=== PATIENT | male | born 2000 | race Caucasian/White ===

== ENCOUNTER 2019-08-17 16:26 | Emergency (ER) | payer BC, SELFPAY ==
[2019-08-17 16:30] VITALS: BP 144/86; PULSE 90; RESP 18; TEMP 36.8; O2SAT 100; BMI 20.9
--- NOTE | 2019-08-17 16:33 | XR_ITS ---
PROCEDURE: XR CHEST PORTABLE CLINICAL HISTORY: cough/respiratory symptoms Chest pain COMPARISON: No exams were available for comparison FINDINGS: The cardiomediastinal silhouette and pulmonary vascularity are within normal limits. No lobar consolidation or collapse is evident. Overlying the left inferior hilar region/heart there is some irregular density noted possibly due to summation artifact from overlying vessels. The remaining lungs are clear. No acute bony abnormalities. IMPRESSION: Irregular density overlies the left hilum inferiorly and may be due to artifact from overlying vessels. Consider follow-up PA and lateral chest for confirmation otherwise negative Dictated by: Inocencio Sutherland MD 08/17/2019 16:53 Electronically signed by Inocencio Sutherland MD in [place] 08/17/2019 16:53
--- NOTE | 2019-08-17 16:33 | HMH.COUGH ---
Cough Clinic HPI - History of Present Illness HPI:: 18 year old male presents to cough clinic today complaining of a 1 day history of sore throat, chest heaviness and nausea. He states he was recently around someone with pneumonia. He denies fever and cough. He has not taken any medication for his symptoms and does not take any medications on a routine basis. Home Medications: Home Medications Medication Instructions Recorded Confirmed Type Amoxicillin [Amoxicillin 500mg 500 mg PO TID #21 cap 08/17/19 Rx Cap] Allergies/Adverse Reactions: Allergies Allergy/AdvReac Type Severity Reaction Status Date / Time No Known Allergies Allergy Verified 08/17/19 16:28 Cough Clinic Triage - Symptoms Fever History: No Chills: Yes Myalgia: No Nasal Drainage: No Sore Throat: Yes Productive Cough: No Non-productive Cough: No Ear or Sinus Pain: No Joint Pain: No Chest Pain: Yes Rash: No Shortness of Breath: Yes Nausea or Vomitting: Yes Headache: No Abdominal Pain: No Diarrhea: No - Exposure History Foreign Travel: No Direct Contact with COVID-19 Patient: No - Risk Factors Greater than 60 Years Old: No COPD: No Diabetes: No Heart Disease: No Home Oxygen Use: No Chronic Renal Disease: No Chronic Liver Disease: No Neurologic/Neurodevelopmental/intellectual disability: No Other Chronic Diseases: No Current Smoker: No Former Smoker: No - Eyes Eyes: Denies change in vision - Genitourinary Male Genitourinary: Denies difficulty urinating - Neurologic Neurologic: Denies dizziness Cough Clinic Exam - General General appearance: alert, in no apparent distress - Head Head exam: atraumatic, normocephalic, normal inspection - Eye Eye exam: Present: normal appearance, PERRL, EOMI - ENT ENT exam: Present: normal exam, mucous membranes moist, TM's normal bilaterally, normal external ear exam - Expanded ENT Exam Throat exam: Present: tonsillar erythema - Neck Neck exam: Present: normal inspection, full ROM, trachea midline. Absent: meningismus, lymphadenopathy - Respiratory Respiratory exam: Present: normal lung sounds bilaterally. Absent: respiratory distress - Cardiovascular Cardiovascular exam: Present: regular rate, normal rhythm. Absent: JVD - Abdominal Exam Abdominal exam: Present: soft, normal bowel sounds. Absent: tenderness - Extremities Exam Extremities exam: Present: normal inspection, full ROM, normal capillary refill. Absent: calf tenderness - Neurological Exam Neurological exam: Present: alert, oriented X3 - Skin Skin exam: Present: warm, dry, intact, normal color - Lymphatic Lymphatic Findings: no adenopathy Cough Clinic MDM Vital Signs: 08/17/19 16:30 Temperature 98.2 F Temperature Source Oral Pulse Rate [Brachial] 90 Respiratory Rate 18 Blood Pressure [Right Arm] 144/86 H Blood Pressure Mean [Right Arm] 105 Blood Pressure Source [Right Arm] Automatic Cuff Blood Pressure Position [Right Arm] Sitting 02 Sat by Pulse Oximetry 100 Oxygen Delivery Method Room Air - Lab Data Lab results reviewed: Yes: I reviewed the patient's lab results. Lab Results 08/17/19 16:40: WBC 7.4, RBC 5.01, Hgb 15.2, Hct 45.6, MCV 91.0, MCH 30.4, MCHC 33.4, RDW 13.7, Plt Count 278, MPV 7.1 L, Neut % (Auto) 60.1, Lymph % (Auto) 26.3, Mcnairy % (Auto) 8.9, Eos % (Auto) 4.1, Baso % (Auto) 0.6, Neut # (Auto) 4.4, Lymph # (Auto) 1.9, Mcnairy # (Auto) 0.7, Eos # (Auto) 0.3, Baso # (Auto) 0.1 08/17/19 16:40: Influenza Type A Ag Negative, Influenza Type B Ag Negative 08/17/19 16:40: Group A Strep Rapid Negative Orders (Tests/Meds): ORDERS Category Date Time Status Strep Screen Confirmation Stat Micro 08/17/19 16:40 Received Medical Decision Narrative: CXR with no consolidation, CBC consistent with a bacterial infection. Cough Clinic Disposition Clinical Impression: URI, acute Disposition: Home, Self-Care Instructions: Acute Bronchitis Prescriptions: A
[2019-08-17 16:47] LABS: Hematocrit 45.6 % (42.0-52.0); Hemoglobin 15.2 g/dL (14.1-18.0); Mean Corpuscular HGB Conc 33.4 g/dL (31.8-35.4); Mean Corpuscular Hemoglobin 30.4 pg (27.0-31.2); Mean Platelet Volume 7.1 fl (7.4-10.4); Platelet Count 278 K/mm3 (142-424); Red Blood Count 5.01 M/mm3 (4.60-6.20); Red Cell Distribution Width 13.7 % (11.5-17.5); White Blood Count 7.4 K/mm3 (4.5-13.0)
[2019-08-17 16:48] LABS: Basophils # 0.1 K/mm3 (0-0.2); Basophils % 0.6 % (0.1-2.0); Eosinophils # 0.3 K/mm3 (0.0-0.4); Eosinophils % 4.1 % (0.1-12.0); Lymphocytes # 1.9 K/mm3 (0.7-4.5); Lymphocytes % 26.3 % (10-50); Monocytes # 0.7 K/mm3 (0.1-1.0); Monocytes % 8.9 % (1.7-9.3); Neutrophils # 4.4 K/mm3 (1.8-7.8); Neutrophils % 60.1 % (37.0-80.0)
[2019-08-17 16:51] LABS: Strep Scrn Group A (Rapid) Negative (Negative)
[2019-08-17 17:07] VITALS: BP 144/86; PULSE 90; RESP 18; TEMP 36.8; O2SAT 100
== END 2019-08-17 17:08 | disposition home or self-care (01) ==
PROVIDERS: Emergency Provider Family Medicine
DX: J06.9 Acute upper respiratory infection, unspecified (principal)
CPT/HCPCS: 36415; 71045; 85025; 87275; 87276; 87430; 99201; 99213

== ENCOUNTER 2021-09-27 19:46 | Emergency (ER) | payer SELFPAY ==
[2021-09-27 19:53] VITALS: BP 143/95; PULSE 115; RESP 14; TEMP 36.6; O2SAT 99; BMI 20.9
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
[2021-09-27 21:00] VITALS: BP 134/91; PULSE 100; RESP 18; TEMP 37.5; O2SAT 100; BMI 20.9
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
[2021-09-27 22:00] VITALS: BP 134/91; PULSE 100; RESP 18; TEMP 37.5; O2SAT 100
== END 2021-09-27 22:08 | disposition home or self-care (01) ==
PROVIDERS: Emergency Provider Physician Assistant
DX: S52.125A Nondisplaced fracture of head of left radius, initial encounter for closed fracture (principal); W22.8XXA Striking against or struck by other objects, initial encounter; Y92.89 Other specified places as the place of occurrence of the external cause
CPT/HCPCS: 73090; 73100; 73120; 99213; G0463

== ENCOUNTER → 2021-10-28 10:28 | Outpatient (CLI) | payer SELFPAY ==
--- NOTE | 2021-10-28 10:32 | XR_ITS ---
FINAL REPORT CLINICAL HISTORY: elbow fracture follow-up COMPARISON: September 27, 2021 FINDINGS: LEFT ELBOW Three views of the left elbow were obtained. Again noted is a nondisplaced fracture of the radial neck. The bony alignment is stable. There is evidence of interval healing at the fracture site with increased sclerosis. The joint spaces are intact. There is no soft tissue abnormality. IMPRESSION: Nondisplaced fracture of the radial neck with interval healing at the fracture site with increased sclerosis. Reviewed, Interpreted and Dictated by Sanjay Lopez III, MD Transcribed by Catrachita Gutierrez Authenticated and [facility]
--- NOTE | 2021-10-28 11:59 | XR_ITS ---
FINAL REPORT CLINICAL HISTORY: wrist pain FINDINGS: 6 views including scaphoid views of the left wrist were obtained. There is no acute fracture or dislocation. The joint spaces are intact. There is no soft tissue abnormality. IMPRESSION: No acute abnormality. Reviewed, Interpreted and Dictated by Sanjay Lopez III, MD Transcribed by Raffi Ward Authenticated and [facility]
== END ==
PROVIDERS: Visit Provider Orthopaedic Surgery
DX: S52.122A Displaced fracture of head of left radius, initial encounter for closed fracture (principal); S63.502A Unspecified sprain of left wrist, initial encounter
CPT/HCPCS: 73080; 73110

== ENCOUNTER 2021-12-24 18:16 | Emergency (ER) | payer OTHER, SELFPAY ==
[2021-12-24 19:09] VITALS: BP 129/85; PULSE 102; RESP 19; TEMP 36.6; O2SAT 100; BMI 23.7
--- NOTE | 2021-12-24 19:23 | EXP.UTC ---
Discharge Plan Disposition Patient Disposition: Home, Self-Care Condition: Good Prescriptions Prescriptions: New amoxicillin-pot clavulanate 875-125 mg tablet 1 tab PO Q12H 7 Days Qty: 14 0RF No Action amoxicillin 500 MG capsule 500 mg PO TID Qty: 21 0RF Referrals Referrals: Provider,Referral, MD [Primary Care Provider] - Enter time for follow up Activity Restrictions/Add. Instructions Additional Instructions/Restrictions: Keep wound area clean and dry Watch for signs of infection including but not limited too swelling, redness, drainage and streaks if seen follow up immediately Take medication as prescribed Return if needed Straight to ER if any life threatening symptoms Clinical Impressions Clinical Impression: Cat bite Discharge ED Provider: Martina Cortez Abi [facility] HPI General Stated complaint: ao 12/24, right hand/finger pain Time Seen by Provider: 12/24/21 19:23 Source of Information: Patient Limitations: No Limitations Description of Symptoms (Recalled from Triage Doc. by RN): patient comes in with cat bite that happened early this am. on right ring finger. HEENT Symptoms (Recalled from RN notes): No Resp Symptoms (Recalled from RN notes): No Skin Symptoms (Recalled from RN notes): Yes MS Symptoms (Recalled from RN notes): No Functional Status (Recalled from RN notes): n/a History of Present Illness Provider Complaint: Patient states that around 4am this morning his cat bite him on his right ring finger States that he thought it would be ok but as the day went on it got more sore and he got worried about infection so he came in to get it checked and get a tetatnus shot Related Data Previous Rx's Medication Instructions Recorded amoxicillin 500 mg capsule 500 mg PO TID #21 caps 08/17/19 amoxicillin 875 mg-potassium 1 tab PO Q12H 7 days #14 tabs 12/24/21 clavulanate 125 mg tablet Allergies Allergy/AdvReac Type Severity Reaction Status Date / Time No Known Allergies Allergy Verified 10/28/21 11:24 Worker's Comp Is this a Worker's Comp case?: No PFSH PFSH Social History Smoking Status: Never smoker alcohol intake: never substance use type: denies use current occupational status: student household members: family housing: house ROS Obtained: Yes All systems reviewed & no additional complaints except as documented and Yes Systems reviewed as appropriate & no additional complaints except as documented Eyes Eyes: Reports system reviewed and no additional complaints, except as documented and Reports as per HPI ENT Ears, Nose, Mouth, and Throat: Reports system reviewed and no additional complaints, except as documented and Reports as per HPI Cardiovascular Cardiovascular: Reports system reviewed and no additional complaints, except as documented and Reports as per HPI Respiratory Respiratory: Reports system reviewed and no additional complaints, except as documented Integumentary/Breasts Skin/Breast: Reports system reviewed and no additional complaints, except as documented and Reports other Comments: multiple cat bites noted to right ring finger able to move and bend finger no redness noted mild swelling Physical Exam General General appearance: alert and in no apparent distress ENT ENT exam: Present normal exam Respiratory Respiratory exam: Present normal lung sounds bilaterally; Absent respiratory distress Cardiovascular Cardiovascular exam: Present regular rate and normal rhythm Expanded Upper Extremity Exam Right: Hand L/R front image: 1. other (small puncture wound noted patient reports was biten by cat earlier today) 2. other (multiple small abrasions noted from cat bite earlier this morning) Comment: able to move and bend finger without difficulty, no redness noted mild swelling noted Neurological Exam Neurological exam: Present alert and oriented X3 Medical Decision Making Anselmo
[2021-12-24 19:53] VITALS: BP 129/85; PULSE 102; RESP 19; TEMP 36.6
== END 2021-12-24 19:55 | disposition home or self-care (01) ==
PROVIDERS: Emergency Provider Nurse Practitioner
DX: S61.234A Puncture wound without foreign body of right ring finger without damage to nail, initial encounter (principal); W55.01XA Bitten by cat, initial encounter; Z23 Encounter for immunization
CPT/HCPCS: 90471; 90714; 99212; G0463

== ENCOUNTER 2021-12-25 22:28 | Emergency (ER) | payer OTHER, SELFPAY ==
[2021-12-25 22:30] VITALS: BP 141/98; PULSE 111; RESP 16; TEMP 38.3; O2SAT 98; BMI 23.7
[2021-12-25 23:18] VITALS: BMI 23.7
[2021-12-25 23:39] LABS: Basophils # 0.1 K/mm3 (0-0.2); Basophils % 0.7 % (0.1-2.0); Eosinophils # 0.1 K/mm3 (0.0-0.4); Hematocrit 43.4 % (42.0-52.0); Hemoglobin 13.9 g/dL (14.1-18.0); Lymphocytes # 1.1 K/mm3 (0.7-4.5); Lymphocytes % 7.9 % (10-50); Mean Corpuscular HGB Conc 32.1 g/dL (31.8-35.4); Mean Corpuscular Hemoglobin 30.6 pg (27.0-31.2); Mean Corpuscular Volume 95.3 fl (80-94); Mean Platelet Volume 7.4 fl (7.4-10.4); Monocytes # 0.7 K/mm3 (0.1-1.0); Monocytes % 5.1 % (1.7-9.3); Neutrophils # 11.7 K/mm3 (1.8-7.8); Neutrophils % 85.3 % (37.0-80.0); Platelet Count 333 K/mm3 (142-424); Red Blood Count 4.55 M/mm3 (4.60-6.20); Red Cell Distribution Width 13.7 % (11.5-17.5); White Blood Count 13.7 K/mm3 (4.8-10.8)
--- NOTE | 2021-12-25 23:48 | XR_ITS ---
PROCEDURE INFORMATION: Exam: XR Right Hand Exam date and time: 12/25/2021 11:42 PM Age: 21 years old Clinical indication: Swelling; Fingers; Right; Additional info: Cat bite, 4th digit TECHNIQUE: Imaging protocol: Radiologic exam of the Right hand. Views: 3 or more views. COMPARISON: CR HANDR3 HAND-RT 3 VIEWS 12/30/2015 4:42 PM FINDINGS: Bones/joints: No acute fracture or dislocation. Soft tissues: Normal. IMPRESSION: No acute fracture or dislocation.
[2021-12-25 23:50] LABS: Alanine Aminotransferase 58 U/L (12-78); Albumin Level 4.3 g/dl (3.5-5.0); Albumin/Globulin Ratio 1.3 (1.1-1.8); Alkaline Phosphatase 137 U/L (38-126); Aspartate Amino Transferase 39 U/L (17-59); Bilirubin,Total 1.5 mg/dl (0.2-1.3); Blood Urea Nitrogen 10 mg/dl (9-20); Calcium 9.1 mg/dl (8.4-10.2); Carbon Dioxide 29 mmol/L (22.0-30.0); Chloride 103 mmol/L (98-107); Creatinine Clearance Estimated 139 mL/min (50-200); Estimated Glomerular Filt Rate 105 ml/min (>60); GFR (African American) 127 ML/MIN (>60); Globulin 3.4 g/dL (1.3-3.2); Glucose 107 mg/dl (74-100); Sodium 139 mmol/L (136-145); Total Protein,Serum 7.7 g/dl (6.3-8.2)
[2021-12-25 23:51] LABS: Lactic Acid 0.9 mmol/L (0.7-2.1)
[2021-12-25 23:55] LABS: C-Reactive Protein 69.5 mg/L (0-4)
[2021-12-25 23:57] LABS: MANUAL DIFFERENTIAL MANUAL DIFFERENTIAL (MANUAL DIFF)
--- NOTE | 2021-12-26 00:01 | HMH.EDSKAF ---
Discharge Plan Disposition Patient Disposition: Xfer [facility] Chief Complaint: Skin/Abscess/Foreign Body Prescriptions Prescriptions: No Action amoxicillin 500 MG capsule 500 mg PO TID Qty: 21 0RF amoxicillin-pot clavulanate 875-125 mg tablet 1 tab PO Q12H 7 Days Qty: 14 0RF Referrals Referrals: Provider,Referral, MD [Primary Care Provider] - Enter time for follow up Clinical Impressions Clinical Impression: Tenosynovitis, Cat bite involving extremity Instructions Patient Instructions: DI for Skin Abscess Discharge ED Provider: Mickey Earl Skin/Abscess/FB HPI General Chief complaint: Skin/Abscess/Foreign Body Stated complaint: AO 12/24@0400@home cat bite R ring finger Time Seen by Provider: 12/26/21 00:01 Mode of Arrival: Ambulatory Source of Information: Patient and Medical Record Limitations: No Limitations Description of Symptoms (Recalled from ER Triage Doc. by RN): pt states was playing with cat yesterday and cat bit rt ring finger. pt was seen yesterday in [facility] and started abxs. pt c/o rt ring finger pain and swelling. History of Present Illness HPI narrative: cat bite rt hand about 24 hrs ago - his cat - has progressive changes to rt 4th finger - reddness/drainage and inc pain - seen in [facility] today and started abx - fever complaint: other (cat bite ) Onset (ago): hour(s) Tetanus up to date: yes Location: R hand Severity: moderate Associated symptoms: denies other symptoms Treatments prior to arrival: antibiotic Related Data Previous Rx's Medication Instructions Recorded amoxicillin 500 mg capsule 500 mg PO TID #21 caps 08/17/19 amoxicillin 875 mg-potassium 1 tab PO Q12H 7 days #14 tabs 12/24/21 clavulanate 125 mg tablet Allergies Allergy/AdvReac Type Severity Reaction Status Date / Time No Known Allergies Allergy Verified 10/28/21 11:24 PFS PFS Social History (Updated 12/24/21 @ 19:52 by Martina Cortez APRN) Smoking Status: Never smoker alcohol intake: never substance use type: denies use current occupational status: student household members: family housing: house ROS Obtained: Yes Systems reviewed as appropriate & no additional complaints except as documented Constitutional Constitutional: Reports fever(s) Integumentary/Breasts Skin/Breast: Reports as per HPI and Reports redness Physical Exam General General appearance: alert Head Head exam: normocephalic Eye Eye exam: Present PERRL and EOMI ENT ENT exam: Present mucous membranes moist Neck Neck exam: Present trachea midline Respiratory Respiratory exam: Present normal lung sounds bilaterally Cardiovascular Cardiovascular exam: Present regular rate Abdominal Exam Abdominal exam: Present soft Expanded Upper Extremity Exam Right: Hand exam: Present tenderness, swelling, erythema and other (bite rt 4th finger at volar pip jt with positive 4/4 kanavel signs ) Vascular exam: Normal radial pulse Neurological Exam Neurological exam: Present alert, oriented X3 and CN II-XII intact Psychiatric Psychiatric exam: Present normal affect Skin Skin exam: Present other (infected finger ) Medical Decision Making Medical Records Medical records reviewed: Yes I reviewed the patient's medical records. Juni Inquiry Pt receiving controlled substance: No Vital Signs: 12/25/21 22:30 Temperature 101.0 F H Temperature Source Oral Pulse Rate [Right] 111 H Respiratory Rate 16 Blood Pressure [Right Arm] 141/98 H Blood Pressure Mean [Right Arm] 112 02 Sat by Pulse Oximetry 98 Lab Data Lab results reviewed: Yes I reviewed the patient's lab results. Lab Results 12/25/21 23:26: WBC 13.7 H, RBC 4.55 L, Hgb 13.9 L, Hct 43.4, MCV 95.3 H, MCH 30.6, MCHC 32.1, RDW 13.7, Plt Count 333, MPV 7.4, Neut % (Auto) 85.3 H, Lymph % (Auto) 7.9 L, Russell % (Auto) 5.1, Eos % (Auto) 1.0, Baso % (Auto) 0.7, Neut # (Auto) 11.7 H, Lymph # (Auto) 1.1, Russell # (Auto) 0.7, Eos # (Auto) 0.1, Baso
[2021-12-26 00:09] LABS: Procalcitonin 0.082 ng/mL (0.0-2.0)
[2021-12-26 00:39] LABS: Erythrocyte Sedimentation Rate 44 mm/hr (0-15)
[2021-12-26 00:52] LABS: Lymphocytes % 12 % (10-50); Monocytes % 3 % (2-9); Neutrophils % 85 % (42-76); Platelet Estimate Normal; RBC Morphology Normal; Total Cells Counted 100
--- NOTE | 2021-12-26 01:09 | PC.NURSE ---
shaka on phone with [facility] @ this time
[2021-12-26 01:38] VITALS: BP 134/78; PULSE 100; RESP 16; TEMP 37.2; O2SAT 98
== END 2021-12-26 01:40 | disposition critical access hospital (66) ==
PROVIDERS: Emergency Provider Emergency Medicine
DX: M65.88 Other synovitis and tenosynovitis, other site (principal); W55.01XS Bitten by cat, sequela
CPT/HCPCS: 73130; 80053; 83605; 84145; 85007; 85025; 85651; 86140; 87040; 96365; 99284

== ENCOUNTER 2022-11-09 15:19 | Emergency (ER) | payer BC, SELFPAY ==
[2022-11-09 15:22] VITALS: BP 121/84; PULSE 91; RESP 16; TEMP 36.7; O2SAT 99; BMI 20.9
[2022-11-09 15:30] VITALS: BP 120/79
--- NOTE | 2022-11-09 15:32 | PC.NURSE ---
ALL SNEED at
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
--- NOTE | 2022-11-09 15:38 | HMH.EDGENADL ---
Discharge Plan Disposition Patient Disposition: Home, Self-Care Chief Complaint: Headache Prescriptions Prescriptions: No Action amoxicillin 500 MG capsule 500 mg PO TID Qty: 21 0RF amoxicillin-pot clavulanate 875-125 mg tablet 1 tab PO Q12H 7 Days Qty: 14 0RF Referrals Follow up/Referrals: Provider,Referral, [Primary Care Provider] - See instructions Activity Restrictions/Add. Instructions Additional Instructions/Restrictions: Return for worsening headache vomiting numbness weakness or tingling arms or legs or any other concerns within the next 8 hours otherwise follow-up with your primary care physician within the next few days Clinical Impressions Clinical Impression: Head injury Discharge ED Provider: Mj Lui General Adult HPI General Chief complaint: Headache Stated complaint: 11/06/22 WC [facility] [place], [place] Time Seen by Provider: 11/09/22 15:20 Mode of Arrival: Ambulatory Source of Information: Patient Limitations: No Limitations Description of Symptoms (Recalled from ER Triage Doc. by RN): Pt reports migraine since wednesday, states hit his head on a metal cart at work wednesday night. Received 1 staple in head. Denies LOC. History of Present Illness HPI narrative: 21-year-old male presents with headache for the last few days. He says on Wednesday night he hit his head on a metal cart at work. He went to [facility] and received 1 staple in the head however no head imaging. Evaluated by PCP today and recommended coming to emergency department for head scan as he has had a persistent headache headache is dull nonlocalized. No numbness weakness or tingling arms or legs no vision changes or dizziness Related Data Previous Rx's Medication Instructions Recorded amoxicillin 500 mg capsule 500 mg PO TID #21 caps 08/17/19 amoxicillin 875 mg-potassium 1 tab PO Q12H 7 days #14 tabs 12/24/21 clavulanate 125 mg tablet Allergies Allergy/AdvReac Type Severity Reaction Status Date / Time No Known Allergies Allergy Verified 10/28/21 11:24 [facility] Disclaimer: The information contained in this section may have been updated after the patient was seen, as this information can be updated by other users. Social History (Updated 12/26/21 @ 01:32 by Mickey Earl MD) Smoking Status: Never smoker alcohol intake: never substance use type: denies use current occupational status: student Travel in the last 8 weeks: None household members: family housing: house ROS Obtained: Yes All systems reviewed & no additional complaints except as documented Constitutional Constitutional: Denies fatigue and Reports headache(s) Eyes Eyes: Denies diplopia ENT Ears, Nose, Mouth, and Throat: Reports headache(s) Cardiovascular Cardiovascular: Denies diaphoresis and Denies dyspnea Respiratory Respiratory: Denies dyspnea Gastrointestinal Gastrointestingal: Denies coffee ground emesis Genitourinary Male Genitourinary: Denies flank pain Musculoskeletal Musculoskeletal: Denies arthralgias Integumentary/Breasts Skin/Breast: Denies rash Neurologic Neurologic: Reports headache(s) Endocrine Endocrine: Denies fatigue Hematologic/Lymphatic Henatologic/Lymphatic: Denies easy bleeding Allergic/Immunologic Allergic/Immunologic: Denies urticaria Physical Exam General General appearance: alert and in no apparent distress Eye Eye exam: Present PERRL and EOMI ENT ENT exam: Present normal exam and normal oropharynx Neck Neck exam: Present normal inspection Chest Chest inspection: Present symmetric chest wall rise Respiratory Respiratory exam: Present normal lung sounds bilaterally; Absent respiratory distress Cardiovascular Cardiovascular exam: Present regular rate and normal rhythm Abdominal Exam Abdominal exam: Present soft; Absent distention, tenderness, guarding, rebound, Mota's sign or tenderness at McBur[place]'s Point Rectal Exam Rectal exam: Present deferred Back Exam Back
--- NOTE | 2022-11-09 15:42 | PC.NURSE ---
pt to CT via wheelchair
[2022-11-09 16:00] VITALS: BP 116/80; PULSE 98; RESP 20; O2SAT 97
[2022-11-09 16:30] VITALS: BP 108/67; PULSE 81; O2SAT 99
--- NOTE | 2022-11-09 16:53 | PC.NURSE ---
rounded on pt, pt resting on bed, reports feeling better. States no needs at this time. Lights turned out in room for comfort. call meza in reach
[2022-11-09 17:00] VITALS: BP 100/60; PULSE 68; O2SAT 100
[2022-11-09 17:12] VITALS: BP 100/60; PULSE 68; RESP 16; TEMP 36.7; O2SAT 100
== END 2022-11-09 17:12 | disposition home or self-care (01) ==
PROVIDERS: Emergency Provider Emergency Medicine
DX: S09.8XXA Other specified injuries of head, initial encounter (principal); G43.909 Migraine, unspecified, not intractable, without status migrainosus; W22.8XXA Striking against or struck by other objects, initial encounter; Y99.0 Civilian activity done for income or pay
CPT/HCPCS: 70450; 96361; 96374; 96375; 99284

== ENCOUNTER 2022-11-11 08:42 | Emergency (ER) | payer BC, SELFPAY ==
[2022-11-11 08:43] VITALS: BP 143/98; PULSE 65; RESP 17; TEMP 37; O2SAT 100; BMI 20.9
--- NOTE | 2022-11-11 08:59 | PC.NURSE ---
pt ambulatory to the restroom
--- NOTE | 2022-11-11 09:19 | HMH.EDGENADL ---
Discharge Plan Disposition Patient Disposition: Home, Self-Care Condition: Good Chief Complaint: Headache Prescriptions Prescriptions: No Action amoxicillin 500 MG capsule 500 mg PO TID Qty: 21 0RF amoxicillin-pot clavulanate 875-125 mg tablet 1 tab PO Q12H 7 Days Qty: 14 0RF Referrals Follow up/Referrals: Provider,Referral, MD [Primary Care Provider] - See instructions Activity Restrictions/Add. Instructions Additional Instructions/Restrictions: Motrin/Tylenol as needed. Follow-up PCP in 1 to 2 days. Clinical Impressions Clinical Impression: Post-concussional syndrome Instructions Patient Instructions: Concussion Discharge ED Provider: Meliton Baumann General Adult HPI General Chief complaint: Headache Stated complaint: Weakness, headache Time Seen by Provider: 11/11/22 08:56 Mode of Arrival: Ambulatory Source of Information: Patient Limitations: No Limitations Description of Symptoms (Recalled from ER Triage Doc. by RN): pt was seen in the ED wednesday after hitting his head on a metal rack at work. pt reports he went back to work for the first time last night when he began to get a headache again and said he was too weak to walk. pt requested staff assist him out of the car. pt was able to transfer from car to wheelchair independently without complaints. pt denies any vision changes or unilateral weakness. History of Present Illness HPI narrative: 21yo M returns to the ER secondary to postconcussive syndrome. Reports he has headache and photosensitivity. States he struck his head on Wednesday night. Was seen at a different facility Wednesday. Was seen here on Wednesday. Reports undergoing CAT scan and being diagnosed with concussion. No additional injuries to report. Related Data Previous Rx's Medication Instructions Recorded amoxicillin 500 mg capsule 500 mg PO TID #21 caps 08/17/19 amoxicillin 875 mg-potassium 1 tab PO Q12H 7 days #14 tabs 12/24/21 clavulanate 125 mg tablet Allergies Allergy/AdvReac Type Severity Reaction Status Date / Time No Known Allergies Allergy Verified 10/28/21 11:24 [facility] Disclaimer: The information contained in this section may have been updated after the patient was seen, as this information can be updated by other users. Social History Smoking Status: Never smoker alcohol intake: never substance use type: denies use current occupational status: student Travel in the last 8 weeks: None household members: family housing: house ROS Obtained: Yes Systems reviewed as appropriate & no additional complaints except as documented Physical Exam General General appearance: alert and in no apparent distress Head Head exam: atraumatic Eye Eye exam: Present normal appearance, PERRL and EOMI; Absent scleral icterus or conjunctival redness Neck Neck exam: Present normal inspection Chest Chest inspection: Present symmetric chest wall rise Respiratory Respiratory exam: Present normal lung sounds bilaterally; Absent respiratory distress Cardiovascular Cardiovascular exam: Present regular rate and normal rhythm Abdominal Exam Abdominal exam: Present soft Extremities Exam Extremities exam: Present full ROM Neurological Exam Neurological exam: Present alert, oriented X3 and CN II-XII intact Psychiatric Psychiatric exam: Present normal affect Skin Skin exam: Present warm and other (Scalp staple in place) Medical Decision Making Medical Records Medical records reviewed: Yes I reviewed the patient's medical records. Juni Inquiry Pt receiving controlled substance: No Vital Signs: 11/11/22 08:43 Temperature 98.6 F Temperature Source Oral Pulse Rate [Left Radial] 65 Respiratory Rate 17 Blood Pressure [Right Arm] 143/98 H Blood Pressure Mean [Right Arm] 113 Blood Pressure Source [Right Arm] Automatic Cuff Blood Pressure Position [Right Arm] Sitting 02 Sat by Pulse Oximetry 100 Ox
[2022-11-11 09:30] VITALS: BP 132/86; PULSE 52; RESP 17; TEMP 36.6; O2SAT 100
== END 2022-11-11 09:30 | disposition home or self-care (01) ==
PROVIDERS: Emergency Provider Family Medicine
DX: F07.81 Postconcussional syndrome (principal); W20.8XXA Other cause of strike by thrown, projected or falling object, initial encounter; Y99.0 Civilian activity done for income or pay
CPT/HCPCS: 99283

== ENCOUNTER 2023-11-22 12:23 | Emergency (ER) | payer OTHER, SELFPAY ==
[2023-11-22 12:25] VITALS: BP 137/87; PULSE 87; RESP 16; TEMP 36.7; O2SAT 100; BMI 21.3
--- NOTE | 2023-11-22 12:33 | ECG_ITS ---
APPROVED REPORT Exam: Resting ECG HR:78 bpm ECG Measurements Heart Rate 78 AXES HI 144 P 62 QRSd 100 QRS 78 QT 378 T 50 QTc 412 Conclusion SINUS RHYTHM WITH SINUS ARRHYTHMIA NORMAL ECG Electronically signed by : JAYA WHITLOCK, 11/22/2023 16:56:40
--- NOTE | 2023-11-22 12:38 | CT_ITS ---
FINAL REPORT TECHNIQUE: Axial imaging of the head was obtained without contrast. This study was performed with techniques to keep radiation doses as low as reasonably achievable, (ALARA). Individualized dose reduction techniques using automated exposure control or adjustment of mA and/or kV according to the patient's size were employed. CLINICAL HISTORY: head injury + LOC COMPARISON: None FINDINGS: No abnormal density is seen. Ventricles are normal. There is no hemorrhage. No mass effect is seen. Bone windows show no evidence of fracture. IMPRESSION: No acute findings Reviewed, Interpreted and Dictated by Rubio Mota MD Transcribed by Nathaly Mcclellan Authenticated and [facility]
--- NOTE | 2023-11-22 12:39 | ED_ITS ---
Discharge Plan Disposition Patient Disposition: Home, Self-Care Condition: Good Prescriptions Prescriptions: No Action amoxicillin 500 MG capsule 500 mg PO TID Qty: 21 0RF amoxicillin-pot clavulanate 875-125 mg tablet 1 tab PO Q12H 7 Days Qty: 14 0RF Referrals Follow up/Referrals: Provider,Referral, MD [Primary Care Provider] - See instructions Activity Restrictions/Add. Instructions Additional Instructions/Restrictions: Take Tylenol and ibuprofen at home as needed for pain. I encourage a very slow return to physical activity. Do not do strenuous activity or have a lot of screen time until you have in 24 to 48 hours without symptoms. Return to the emergency department for new or worsening symptoms. Clinical Impressions Clinical Impression: Closed head injury, Concussion Stand Alone Forms Stand Alone Forms: Work/School Release Instructions Patient Instructions: DI for Concussion, DI for Closed Head Injury Discharge ED Provider: Denise Mcneil General Adult HPI General Chief complaint: Head Injury Stated complaint: sent by Dr. ledesma poss concussion Time Seen by Provider: 11/22/23 12:35 History of Present Illness HPI narrative: This patient is a 22-year-old male with a history of seizure disorder presenting to the emergency department for evaluation with concern for head injury. He was sent in by doctor's office for possible concussion. 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 He hit the back of his head and did lose consciousness. Since then, he has had a headache. No vision changes, numbness, tingling, nausea, or vomiting. No other concerns noted at this time. He was well prior to this. He does not take any antic oagulation. Related Data Previous Rx's Medication Instructions Recorded amoxicillin 500 mg capsule 500 mg PO TID #21 caps 08/17/19 amoxicillin 875 mg-potassium 1 tab PO Q12H 7 days #14 tabs 12/24/21 clavulanate 125 mg tablet Allergies Allergy/AdvReac Type Severity Reaction Status Date / Time No Known Allergies Allergy Verified 10/28/21 11:24 [facility] Disclaimer: The information contained in this section may have been updated after the patient was seen, as this information can be updated by other users. Social History Smoking Status: Never smoker alcohol intake: never substance use type: denies use current occupational status: student Travel in the last 8 weeks: None household members: family housing: house ROS Obtained: Yes All systems reviewed & no additional complaints except as documented Physical Exam General General appearance: alert and in no apparent distress Head Head exam: atraumatic and normocephalic Eye Eye exam: Present normal appearance, PERRL and EOMI ENT ENT exam: Present normal exam, normal oropharynx, mucous membranes moist and normal external ear exam Neck Neck exam: Present normal inspection, full ROM and trachea midline; Absent tenderness Chest Chest inspection: Present normal inspection and symmetric chest wall rise; Absent tenderness Respiratory Respiratory exam: Present normal lung sounds bilaterally; Absent respiratory distress, wheezes, stridor or accessory muscle use Cardiovascular Cardiovascular exam: Present regular rate and normal rhythm Abdominal Exam Abdominal exam: Present soft; Absent distention, tenderness or guarding Extremities Exam Extremities exam: Present normal inspection, full ROM and normal capillary refill; Absent tenderness or edema Back Exam Back exam: Present normal inspection and full ROM; Absent tenderness Neurological Exam Neurological exam: Present alert, oriented X3, CN II-XII intact and normal gait; Absent motor sensory deficit Psychiatric Psychiatric exam: Present normal affect and normal mood Skin Skin exam: Present warm and dry Medical Decision Making Medical Records Medical records reviewed: Yes I reviewed the patient's medical records. Juni Inquiry Pt receiving controlled substance: No Vital Signs: 11/22/23 12:25 11/22/23 14:40 Temperature 98.0 F 98.0 F Temperature Source Oral Oral Pulse Rate 87 Pulse Rate [Radial] 87 Respiratory Rate 16 16 Blood Pressure 135/75 Blood Pressure [Right Arm] 137/87 Blood Pressure Mean [Right Arm] 103 Blood Pressure Source Automatic Cuff Blood Pressure Source [Right Arm] Automatic Cuff Blood Pressure Position Sitting Blood Pressure Position [Right Arm] Sitting 02 Sat by Pulse Oximetry 100 Oxygen Delivery Method Room Air Room Air Lab Data Lab results reviewed: Yes I reviewed the patient's lab results. Orders (Tests/Meds): ED MEDICATIONS Discontinued Medications Generic Name Dose Route Start Last Admin Trade Name Freq PRN Reason Stop Dose Admin Acetaminophen 1,000 mg 11/22/23 12:38 11/22/23 13:00 Acetaminophen 500mg Tab PO 11/22/23 12:39 1,000 mg ONCE ONE Administration Ibuprofen 800 mg 11/22/23 12:38 11/22/23 13:00 Ibuprofen 400 Mg Tablet PO 11/22/23 12:39 800 mg ONCE ONE Administration Metoclopramide HCl 5 mg 11/22/23 12:38 11/22/23 13:00 Metoclopramide 10mg Tablet PO 11/22/23 12:39 5 mg ONCE ONE Administration ORDERS Category Date Time Status CT head/brain wo con Stat Cat Scan 11/22/23 12:38 Completed ECG Data Tracing #1: I reviewed this ECG and interpreted as documented below: Normal sinus rhythm with sinus arrhythmia with a ventricular rate of [address] changes concerning for ischemia. Normal axis and intervals. ECG initial impression date: 11/22/23 ECG initial impression time: 00:34 Medical Decision Narrative: In summary, this patient is a 22-year-old male presenting to the Emergency Department for evaluation of head injury with loss of consciousness and headache since then. Differential diagnoses considered include but are not limited to concussion, intracranial hemorrhage, skull fracture. Ruling out the most morbid conditions drove assessment. On exam, the patient is resting comfortably in no acute distress with normal vital signs on cardiac telemetry. He is neurologically intact. Workup included CT head without contrast. He was given oral Tylenol, ibuprofen, and Reglan for symptomatic improvement.. I independently interpreted CT scan prior to the radiologist read and noted no significant intracranial hemorrhage. Please see their read for final interpretation. On reassessment, the patient is resting comfortably with improved headache. He remains neurologically intact. Given this, feel that he is appropriate for discharge home with instructions for supportive management of likely concussion. Strict return precautions were given and he was discharged after all questions were answered. Critical Care Critical Care Time Critical Care Time: No
[2023-11-22] MEDS: ACETAMINOPHEN 500MG TAB 1000 MG PO (13:00)
[2023-11-22] MEDS: IBUPROFEN 400 MG TABLET 800 MG PO (13:00)
[2023-11-22] MEDS: METOCLOPRAMIDE 10MG TABLET 5 MG PO (13:00)
--- NOTE | 2023-11-22 13:08 | PC.NURSE ---
PT TO CT
--- NOTE | 2023-11-22 13:12 | PC.NURSE ---
PT RETURNED FROM CT
[2023-11-22 14:40] VITALS: BP 135/75; PULSE 87; RESP 16; TEMP 36.7; O2SAT 98
== END 2023-11-22 14:40 | disposition home or self-care (01) ==
PROVIDERS: Emergency Provider Emergency Medicine
DX: S06.0X0A Concussion without loss of consciousness, initial encounter (principal); R51.9 Headache, unspecified; I49.9 Cardiac arrhythmia, unspecified; W22.8XXA Striking against or struck by other objects, initial encounter
CPT/HCPCS: 70450; 93005; 99284